=== PATIENT | male | born 1990 | race Caucasian/White ===

== ENCOUNTER 2017-05-04 08:53 | Emergency (ER) | payer SELFPAY ==
[~2017-05-04] VITALS: Ht 180.3 cm; Wt 109.1 kg
[2017-05-04 10:03] LABS: APPEARANCE,URINE CLOUDY (CLEAR); BILIRUBIN,URINE NEGATIVE (NEGATIVE); GLUCOSE, URINE (UA) NEGATIVE (NEGATIVE); KETONES,URINE NEGATIVE (NEGATIVE); NITRATE,URINE NEGATIVE (NEGATIVE); PROTEIN,URINE TRACE (NEGATIVE); UROBILINOGEN,URINE 0.2 mg/dL (<=1.0)
[2017-05-04 10:23] LABS: BACTERIA,URINE None Seen /HPF (None Seen); LEUKOCYTE ESTERASE ,URINE TRACE (NEGATIVE); OCCULT BLOOD,URINE TRACE (NEGATIVE); RBC,URINE 0-2 /HPF (0-2); WBC,URINE 0-2 /HPF (0-5)
[2017-05-04 10:24] LABS: AMORPHOUS SEDIMENT,UR Moderate /LPF (None Seen)
[2017-05-04] MEDS ORDERED: CefTRIAXone SODIUM 1 GM/VIAL IM ONE (10:30)
[2017-05-04] MEDS ORDERED: DOXYCYCLINE 100 MG CAPSULE PO ONE (10:30)
[2017-05-04] MEDS ORDERED: LIDOCAINE HCL/PF 1% 2 ML VIAL ONE (10:35)
[2017-05-04 11:06] VITALS: BP 132/89
== END 2017-05-04 11:14 | disposition home or self-care (01) ==
LOC: EMS 09:02
DX: N45.1 Epididymitis (principal); Z90.49 Acquired absence of other specified parts of digestive tract
CPT/HCPCS: 76870; 81001; 96372; 99285; J0696; J3490

== ENCOUNTER 2017-06-12 11:58 | Emergency (ER) | payer SELFPAY ==
[~2017-06-12] VITALS: Ht 180.3 cm; Wt 106.8 kg
[2017-06-12] MEDS ORDERED: KETOROLAC TROMETHAMINE 60 MG/2 ML VIAL IM ONE (14:15)
[2017-06-12] MEDS ORDERED: CYCLOBENZAPRINE HCL 10 MG TABLET PO ONE (14:15)
[2017-06-12] MEDS ORDERED: BACITRACIN 0.9 GM PACKET OINTMENT TP ONE (14:30)
[2017-06-12] MEDS ORDERED: PERTUSS(ACELL),DIPH,TET VAC/PF 0.5 ML VIAL IM ONE (14:30)
[2017-06-12 15:30] VITALS: BP 138/75
== END 2017-06-12 16:50 | disposition home or self-care (01) ==
LOC: EMS 12:00
DX: S93.402A Sprain of unspecified ligament of left ankle, initial encounter (principal); S30.0XXA Contusion of lower back and pelvis, initial encounter; S60.512A Abrasion of left hand, initial encounter; Z90.49 Acquired absence of other specified parts of digestive tract; W01.0XXA Fall on same level from slipping, tripping and stumbling without subsequent striking against object, initial encounter; Y93.01 Activity, walking, marching and hiking; Y92.89 Other specified places as the place of occurrence of the external cause; Y99.8 Other external cause status
CPT/HCPCS: 73610; 81002; 90471; 90715; 96372; 99284; J1885